=== PATIENT | female | born 1980 | race Two or more races ===

== ENCOUNTER 2017-01-18 14:23 | Emergency (ER) | payer MEDICAID ==
[~2017-01-18 14:23] MED LIST: ADIPEX-P37.5 M3 PO; ADVIL200 M1 PO; ALBUTEROL0.63 MG/1 IH; ALBUTEROL0.83 MG/ML INH; ALREX5 M1 OP; AMBIEN10 MG; AMITRIPTYLINE; AMLODIPINE BESYLATE PO; AUGMENTIN 875-1 EAC2 PO; BACTRIM DS1 TAB PO; BENADRYL; BENADRYL25 M3 PO; CHERATUSSIN AC118 M1 PO; CLARITIN10 M8 PO; DECADRON4 MG PO; DULOXETINE HCL30 M1 PO; EXCEDRIN MIGRA1 EAC3 PO; FIORICET/CODEINE1 EA PO; FIORICET1 TA1 PO; GEODON60 MG; GLUCOPHAGE500 M3 PO; IBUPROFEN200 M1 PO; IBUPROFEN800 MG PO; INDERAL40 MG; INDERAL80 MG; INDERAL80 MG PO; IPRAT-ALBUT 0.5-3 ML INH; KEFLEX500 MG PO; KEPPRA500 M2 PO; KEPPRA500 MG; KETOPROFEN50 MG; LASIX20 MG PO; LASIX40 M1 PO; LASIX40 MG PO; LEVAQUIN750 M1 PO; LEXAPRO10 MG; LORATADINE; MACROBID 100 M100 MG PO; MAXALT10 MG; MEDROL4 M2 PO; METFORMIN HCL500 M2 PO; MOTRIN600 MG PO; MUCINEX1200 MG PO; NECON 7-7-7-281 EACH PO; NO HOME MEDS; NORCO 5/325 TAB1 TAB; NORCO 5/325 TAB1 TAB PO; NORVASC10 M1 PO; NORVASC5 M1 PO; ONDANSETRON HCL8 M1 PO; POTASSIUM PO; PREDNISONE10 MG; PREDNISONE20 M1 PO; PREDNISONE20 MG PO; PRENATAL1 EACH PO; PRILOSEC20 M1 PO; PROPRANOLOL HCL; PROPRANOLOL HCL10 M1 PO; PROPRANOLOL HCL60 M1 PO; PROVENTIL HFA6.7 G1 IH; SINGULAIR; SINGULAIR10 M1 PO; SYMBICORT 160-1 PUFF INH; TEGRETOL PO; TEGRETOL XR200 MG; TEGRETOL XR400 MG; TEGRETOL200 MG; TEGRETOL200 MG PO; TOPROL XL100 M1 PO; TOPROL XL25 M1 PO; TYLENOL TA500 MG/TA1 PO; VISTARIL25 MG PO; ZOFRAN; ZOFRAN4 M2 PO; ZOFRAN4 MG; ZOFRAN8 M1 PO; ZOFRAN8 MG PO
[2017-01-18] MEDS ORDERED: DEPO-PROVE150 MG/11 IM (15:47)
[2017-05-21] MEDS ORDERED: IBUPROFEN800 M1 PO (23:47)
[2017-05-21] MEDS ORDERED: ZOFRAN4 M2 PO (23:47)
[2017-06-13] MEDS ORDERED: PRILOSEC OTC20 M1 PO (18:10)
== END 2017-01-18 17:38 ==
LOC: EDMED 14:23
DX: G43.809 Other migraine, not intractable, without status migrainosus (principal); I10 Essential (primary) hypertension; J45.909 Unspecified asthma, uncomplicated; Z90.89 Acquired absence of other organs; Z98.890 Other specified postprocedural states; F17.200 Nicotine dependence, unspecified, uncomplicated
CPT/HCPCS: J1200; J1885; J2765; J7030

== ENCOUNTER 2017-02-20 20:16 | Emergency (ER) | payer MEDICAID ==
[~2017-02-20 20:16] MED LIST changes: +DEPO-PROVE150 MG/11 IM
[2017-02-20] MEDS ORDERED: GLUCOPHAGE1000 M1 PO (20:34)
[2017-02-20 21:26] LABS: BASO % 0.3 % (0-2); EOS % 3.7 % (0-7); EOSINOPHIL ABSOLUTE COUNT 0.3 tho/cmm (0.0-0.7); HGB-HEMOGLOBIN 13.1 gm/dl (12.0-15.5); IMMATURE GRANULOCYTES ABSOLUTE 0.02 tho/cmm (0-0.03); IMMATURE GRANULOCYTES PERCENT 0.3 % (0-0.3); LYMPH % 37.3 % (20-45); LYMPH ABSOLUTE COUNT 2.9 tho/cmm (0.8-4.5); MCH (MEAN CORPUSCULAR HGB) 27.5 pg (28.0-32.0); MCHC MEAN CORPUSCULAR HGB CONC 33.6 % (32.0-36.0); MCV (MEAN CELL VOLUME) 81.9 fl (82.0-96.0); MEAN PLATELET VOLUME 9.2 cmc (9.4-12.4); MONO % 9.5 % (0-12); MONOCYTE ABSOLUTE COUNT 0.8 tho/cmm (0.0-1.2); NEUTROPHIL ABSOLUTE COUNT 3.9 tho/cmm (1.6-8.0); NEUTROPHIL-AUTOMATED 3.9 tho/cmm (1.6-8.0); NEUTROPHILS % 48.9 % (40-80); PLATELET COUNT 351 tho/cmm (150-450); RED BLOOD COUNT 4.76 mil/cmm (4.00-5.20); WHITE BLOOD COUNT 7.9 tho/cmm (4.0-10.0)
[2017-02-20 21:42] LABS: ANION GAP 12 mmol/L (0-20); BLOOD UREA NITROGEN 18 mg/dl (6-24); CALCIUM 9.1 mg/dl (8.5-10.5); CARBON DIOXIDE-VENOUS 24 mmol/L (22-32); CHLORIDE 112 mmol/l (96-110); CREATININE 0.89 mg/dl (0.50-1.10); GLUCOSE 97 mg/dL (70-110); POTASSIUM 3.8 mmol/L (3.7-5.1); SODIUM 144 mmol/L (135-145); eGFR VALUE FOR BLACK >90 mL/Min
[2017-05-21] MEDS ORDERED: IBUPROFEN800 M1 PO (23:47)
[2017-05-21] MEDS ORDERED: ZOFRAN4 M2 PO (23:47)
[2017-06-13] MEDS ORDERED: PRILOSEC OTC20 M1 PO (18:10)
== END 2017-02-20 22:32 ==
LOC: EDMED 20:16
PROVIDERS: Emergency Medicine
DX: R07.9 Chest pain, unspecified (principal); Z90.49 Acquired absence of other specified parts of digestive tract; Z98.890 Other specified postprocedural states

== ENCOUNTER 2017-03-26 20:10 | Emergency (ER) | payer MEDICAID ==
[~2017-03-26 20:10] MED LIST changes: +GLUCOPHAGE1000 M1 PO
[2017-03-26] MEDS ORDERED: IBUPROFEN800 M1 PO (22:35)
[2017-03-26] MEDS ORDERED: CYCLOBENZAPRINE5 M1 PO (22:35)
[2017-05-21] MEDS ORDERED: IBUPROFEN800 M1 PO (23:47)
[2017-05-21] MEDS ORDERED: ZOFRAN4 M2 PO (23:47)
[2017-06-13] MEDS ORDERED: PRILOSEC OTC20 M1 PO (18:10)
== END 2017-03-26 22:44 ==
LOC: EDMED 20:10
DX: S46.912A Strain of unspecified muscle, fascia and tendon at shoulder and upper arm level, left arm, initial encounter (principal); R51 Headache; X50.9XXA Other and unspecified overexertion or strenuous movements or postures, initial encounter; Y92.69 Other specified industrial and construction area as the place of occurrence of the external cause; Y99.0 Civilian activity done for income or pay
CPT/HCPCS: J1200; J1885

== ENCOUNTER 2017-04-24 20:02 | Emergency (ER) | payer MEDICAID ==
[~2017-04-24 20:02] MED LIST changes: +CYCLOBENZAPRINE5 M1 PO; +IBUPROFEN800 M1 PO
[2017-04-24] MEDS ORDERED: NEURONTIN300 M1 PO (20:44)
[2017-05-21] MEDS ORDERED: IBUPROFEN800 M1 PO (23:47)
[2017-05-21] MEDS ORDERED: ZOFRAN4 M2 PO (23:47)
[2017-06-13] MEDS ORDERED: PRILOSEC OTC20 M1 PO (18:10)
== END 2017-04-24 23:00 ==
LOC: EDMED 20:02
DX: G43.909 Migraine, unspecified, not intractable, without status migrainosus (principal); I10 Essential (primary) hypertension; F17.200 Nicotine dependence, unspecified, uncomplicated
CPT/HCPCS: J0780; J1200; J1885